=== PATIENT | female | born 1980 | race Caucasian/White ===

== ENCOUNTER 2017-06-28 16:56 | Emergency (ER) | payer OTHER ==
[2017-06-28 17:27] VITALS: BP 112/76; PULSE 81; RESP 20; TEMP 98.4; O2SAT 100
== END 2017-06-28 17:29 | disposition left against medical advice (07) ==
LOC: C.ER 16:56
DX: Z02.89 Encounter for other administrative examinations (principal); R10.9 Unspecified abdominal pain

== ENCOUNTER 2018-06-06 14:31 | Emergency (ER) | payer SELFPAY ==
[2018-06-06 14:53] VITALS: BP 127/81; PULSE 82; RESP 18; TEMP 98.1; O2SAT 100
--- NOTE | 2018-06-06 15:12 | C.PDOC ---
History Of Present Illness <Angelina Mendez - Last Filed: 06/06/18 15:35> <JoséDarlenelay Monk - Last Filed: 06/06/18 16:00> CC: Generalized body pain Patient is a 37 year old female with cirrhosis and questionable newly diagnosed RA (at [facility]), who presents to the ED with generalized body and joint pain and diffuse blotchy skin. Patient admits to symptoms of anxiety. As per EMR, there was no RA laboratory work up. Patient was told upon discharge to follow up with PMD/ teletypewriter operator, however, patient has not been able to follow up due to lack of insurance at the moment. Patient denies any associated symptoms. (Camron Kumar) <Angelina Mendez - Last Filed: 06/06/18 15:35> History Per: Patient History/Exam Limitations: no limitations Onset/Duration Of Symptoms: Days Current Symptoms Are (Timing): Still Present Severity: Moderate Pain Scale Rating Of: 6 Location: Diffuse body pain Quality: Achy <Camron Kumar - Last Filed: 06/06/18 16:00> Time Seen by Provider: 06/06/18 14:53 Chief Complaint (Nursing): Abnormal Skin Integrity Past Medical History - Medical History PMH: Arthritis (RA), Asthma Other Surgeries: Tubal Ligation Family History: States: Unknown Family Hx - Social History Hx Alcohol Use: No Hx Substance Use: No (marijuana) - Immunization History Hx Tetanus Toxoid Vaccination: No Hx Influenza Vaccination: No Hx Pneumococcal Vaccination: No <Camron Kumar - Last Filed: 06/06/18 16:00> Vital Signs: Last Vital Signs Temp 98.1 F 06/06/18 14:44 Pulse 82 06/06/18 14:44 Resp 18 06/06/18 14:44 BP 127/81 06/06/18 14:44 Pulse Ox 100 06/06/18 15:26 Review Of Systems Constitutional: Negative for: Fever, Chills, Sweats, Weakness Cardiovascular: Negative for: Chest Pain, Palpitations Respiratory: Negative for: Cough, Shortness of Breath Gastrointestinal: Negative for: Nausea, Vomiting, Abdominal Pain Musculoskeletal: Positive for: Other (Generalized ) <Camron Kumar - Last Filed: 06/06/18 16:00> Physical Exam - Physical Exam Appears: Well Skin: Normal Color, Warm Head: Atraumatic, Normacephalic Eye(s): bilateral: EOMI Neck: Normal ROM Cardiovascular: Rhythm Regular Respiratory: Normal Breath Sounds, Decreased Breath Sounds Gastrointestinal/Abdominal: Normal Exam, Bowel Sounds, Soft Extremity: Other (diffuse joint pain ) Extremity: Bilateral: Atraumatic Neurological/Psych: Oriented x3, Normal Speech <Camron Kumar - Last Filed: 06/06/18 16:00> ED Course And Treatment O2 Sat by Pulse Oximetry: 100 <Camron Kumar - Last Filed: 06/06/18 16:00> Progress - Continuity of Care Discussed pt. case with showroom consultant/specialty: Other ([facility] REVIEWED) <Angelina Mendez - Last Filed: 06/06/18 15:35> Supervising Attending Note - Supervising Attending Note Comment: RESIDENT DR KUMAR - Attestation: I have personally seen and examined this patient.: Yes I have fully participated in the care of the patient.: Yes I have reviewed all pertinent clinical information, including history, physical exam and plan: Yes <Angelina Mendez - Last Filed: 06/06/18 15:35> <Camron Kumar - Last Filed: 06/06/18 16:00> - Notes: Notes:: GEN PAIN X 2 DAYS. STATES DX W RA @ [facility] "MY RA IS ACTING UP" BUT NO DOCUMENTED LAB RESULTS FOR RA ON OLD CHART REVIEW. DENIES FOCAL JOINT PAIN. NO OTHER ASSOC SX. EXAM ABOVE (Angelina Mendez) Disposition Counseled Patient/Family Regarding: Diagnosis, Need For Followup, Rx Given - Disposition Disposition Time: 15:35 <Angelina Mendez - Last Filed: 06/06/18 15:35> <Camron Kumar - Last Filed: 06/06/18 16:00> - Disposition Referrals: [facility] [Outside] [facility] [Outside] Disposition: HOME/ ROUTINE Condition: GOOD Instructions: Muscle and Bone Pain (DC), Joint Pain Forms: [employer] (Frisian) - Clinical Impression Clinical Impression: Myalgia
== END 2018-06-06 15:41 | disposition home or self-care (01) ==
LOC: C.ER 14:31
DX: M79.1 Myalgia (principal); M06.9 Rheumatoid arthritis, unspecified

== ENCOUNTER 2018-08-05 17:33 | Emergency (ER) | payer MEDICAID, OTHER ==
[2018-08-05 17:55] VITALS: BP 166/94; PULSE 85; RESP 20; TEMP 98.9; O2SAT 100
--- NOTE | 2018-08-05 18:41 | C.PDOC ---
History Of Present Illness 37 year old female presents to the ED requesting heroin detox. Patient states she has been snorting around 10/15 bags/day. Patient stopped using yesterday and is requesting detox. At around 0230 today, she started with symptoms of vomiting, diarrhea, abdominal pain, joint pain, subjective fever and chills. Patient states she usually goes to [facility] in [place]. She reports history of Rheumatoid Arthritis and Asthma. Patient denies suicidal/homicidal ideation. Surgical history: tubal ligation social history: smoking, denies alcohol use family history: hypertension, diabetes, cancer Time Seen by Provider: 08/05/18 18:37 Chief Complaint (Nursing): Substance Abuse History Per: Patient History/Exam Limitations: no limitations Onset/Duration Of Symptoms: Hrs Current Symptoms Are (Timing): Still Present Modifying Factor(s): Narcotics (heroin ) Associated Symptoms: denies: Suicidal Thoughts, Suicidal Plan Additional History Per: Patient Past Medical History Reviewed: Historical Data, Nursing Documentation, Vital Signs Vital Signs: Last Vital Signs Temp 98.9 F 08/05/18 17:50 Pulse 85 08/05/18 17:50 Resp 20 08/05/18 17:50 BP 166/94 H 08/05/18 17:50 Pulse Ox 100 08/05/18 17:50 - Medical History PMH: Arthritis (RA), Asthma, Rheumatoid Arthritis Family History: States: Unknown Family Hx - Social History Hx Alcohol Use: Yes Hx Substance Use: Yes - Immunization History Hx Tetanus Toxoid Vaccination: No Hx Influenza Vaccination: No Hx Pneumococcal Vaccination: No Review Of Systems Psych: Positive for: Other (heroin detox ) Physical Exam - Physical Exam Appears: Non-toxic, No Acute Distress, Other (tired, tearful ) Skin: Warm, Dry Head: Normacephalic, Tenderness Eye(s): bilateral: PERRL, EOMI Oral Mucosa: Moist Throat: No Erythema, No Exudate Neck: Normal ROM, Trachea Midline Lymphatic: No Adenopathy Cardiovascular: Rhythm Regular, No Murmur Respiratory: Normal Breath Sounds, No Wheezing Gastrointestinal/Abdominal: Soft, Tenderness (diffuse, mild ), No Mass, No Guarding, No Rebound Back: Normal Inspection, No Decreased ROM Extremity: Normal ROM, No Deformity Neurological/Psych: Oriented x3, Normal Motor, Normal Sensation ED Course And Treatment O2 Sat by Pulse Oximetry: 100 (on RA ) Pulse Ox Interpretation: Normal Medical Decision Making Medical Decision Making: Impression: opioid use disorder Progress: there are no detox beds at this time. patient will be discharged with local resources and Rx for Zofran and Ibuprofen Disposition - Disposition Disposition: ELOPEMENT - ER ONLY Disposition Time: 19:00 Condition: GOOD Additional Instructions: CONTINUE TO TRY OTHER LOCATIONS FOR DETOX Prescriptions: Dicyclomine [Bentyl] 20 mg PO QID PRN #20 tab PRN Reason: abdominal pain Famotidine [Pepcid] 40 mg PO DAILY PRN #30 tab PRN Reason: reflux RX: Ibuprofen [Motrin Tab] 600 mg PO Q8 PRN #30 tab PRN Reason: Pain, Moderate (4-7) Ondansetron ODT [Zofran ODT] 1 odt PO Q6 PRN #20 odt PRN Reason: Nausea/Vomiting Instructions: Drug Abuse and Drug Addiction (DC) Forms: [employer] (Slovak) - Clinical Impression Clinical Impression: Opioid use disorder - Scribe Statement The provider has reviewed the documentation as recorded by the Scribe (Carmen Coy) Provider Attestation: All medical record entries made by the Scribe were at my direction and personally dictated by me. I have reviewed the chart and agree that the record accurately reflects my personal performance of the history, physical exam, medical decision making, and the department course for this patient. I have also personally directed, reviewed, and agree with the discharge instructions and disposition.
== END 2018-08-05 19:55 | disposition left against medical advice (07) ==
LOC: C.ER 17:33
DX: F11.10 Opioid abuse, uncomplicated (principal)

== ENCOUNTER 2018-09-04 00:45 | Emergency (ER) | payer OTHER ==
[2018-09-04 01:09] VITALS: RESP 20; O2SAT 97
[2018-09-04] MEDS ORDERED: Sodium Chloride 0.9% 1,000 ML IV ONE (01:17)
--- NOTE | 2018-09-04 01:17 | C.PDOC ---
History Of Present Illness Patient presentes with diffuse body aches, running nose , for the last 24-48 hours/. Also a slight non productive cough. Speaking in complete sentences. No f/c/n/v Time Seen by Provider: 09/04/18 01:17 Chief Complaint (Nursing): Flu-like Symptoms Past Medical History Reviewed: Historical Data, Nursing Documentation, Vital Signs Vital Signs: Last Vital Signs Temp 98.4 F 09/04/18 00:55 Pulse 92 H 09/04/18 00:55 Resp 20 09/04/18 00:55 BP 114/78 09/04/18 00:55 Pulse Ox 97 09/04/18 00:55 - Medical History PMH: Arthritis (RA), Asthma, Rheumatoid Arthritis Family History: States: No Known Family Hx - Social History Hx Alcohol Use: Yes Hx Substance Use: Yes - Immunization History Hx Tetanus Toxoid Vaccination: No Hx Influenza Vaccination: No Hx Pneumococcal Vaccination: No Review Of Systems Constitutional: Negative for: Fever, Chills ENT: Negative for: Throat Pain Cardiovascular: Negative for: Chest Pain Respiratory: Positive for: Cough Gastrointestinal: Negative for: Nausea, Vomiting Genitourinary: Negative for: Dysuria Musculoskeletal: Negative for: Back Pain Skin: Negative for: Rash Neurological: Negative for: Weakness Psych: Negative for: Anxiety Physical Exam - Physical Exam Appears: Non-toxic, No Acute Distress Skin: Warm, Dry Eye(s): bilateral: Normal Inspection Nose: Discharge (clear) Oral Mucosa: Moist Throat: No Erythema, No Exudate Neck: Supple Chest: Symmetrical Cardiovascular: Rhythm Regular Respiratory: No Rales, No Rhonchi, No Wheezing Extremity: Normal ROM Neurological/Psych: Oriented x3 Gait: Steady ED Course And Treatment - Laboratory Results Result Diagrams: 09/04/18 01:41 09/04/18 01:41 O2 Sat by Pulse Oximetry: 97 Pulse Ox Interpretation: Normal Reevaluation Time: 03:03 Reassessment Condition: Improved Medical Decision Making Medical Decision Making: Upon provider reevaluation patient is feeling better, is medically stable, and requires no further treatment in the ED at this time. Patient will be discharged home . Counseling was provided and all questions were answered regarding diagnosis and need for follow up with the referred clinic. There is agreement to discharge plan. Return if symptoms persist or worsen. Disposition Counseled Patient/Family Regarding: Studies Performed, Diagnosis, Need For Followup - Disposition Referrals: [facility] [Outside] Disposition: HOME/ ROUTINE Disposition Time: 01:17 Condition: FAIR Additional Instructions: Please return if symptoms recur Instructions: Viral Upper Respiratory Infection, Adult (DC) Forms: [employer] (Ukrainian) - Clinical Impression Clinical Impression: URI (upper respiratory infection)
[2018-09-04] MEDS ORDERED: Sodium Chloride 0.9% 1,000 ML ONE (01:42)
[2018-09-04 01:44] LABS: BASO # 0.1 K/uL (0.0-0.2); EOS % 0.6 % (0.0-4.0); HEMOGLOBIN 10.9 g/dL (11.0-16.0); LYMPH # 3.1 K/uL (1.0-4.3); LYMPH % 42.9 % (20.0-40.0); MEAN CELL VOLUME 78.4 fL (81.0-99.0); MEAN CORPUSCULAR HEMOGLOBIN 25.7 pg (27.0-31.0); MEAN CORPUSCULAR HGB CONC 32.8 g/dL (33.0-37.0); MONO # 0.7 K/uL (0.0-0.8); MONO % 9.5 % (0.0-10.0); NEUT # 3.3 K/uL (1.8-7.0); RBC 4.23 Mil/uL (3.80-5.20); RED CELL DISTRIBUTION WIDTH 17.8 % (11.5-14.5); WHITE BLOOD COUNT 7.2 K/uL (4.8-10.8)
[2018-09-04 01:56] LABS: BLOOD UREA NITROGEN 15 mg/dL (7-17); CALCIUM 8.8 mg/dl (8.6-10.4); GFR NON-AFRICAN AMERICAN > 60
[2018-09-04 01:59] LABS: HCG,QUALITATIVE URINE NEGATIVE (NEGATIVE)
[2018-09-04 02:01] LABS: SQUAMOUS EPITHIAL 5 /hpf (0-5); URINE BILIRUBIN NEGATIVE (NEGATIVE); URINE BLOOD NEGATIVE (NEGATIVE); URINE CLARITY Clear (Clear); URINE COLOR Yellow (YELLOW); URINE GLUCOSE (UA) NORMAL (Normal); URINE LEUKOCYTE ESTERASE NEG Leu/uL (Negative); URINE PROTEIN NEGATIVE (NEGATIVE); URINE UROBILINOGEN NORMAL mg/dL (0.2-1.0)
[2018-09-04 04:05] VITALS: BP 118/82; PULSE 88; TEMP 98.3
== END 2018-09-04 02:45 | disposition home or self-care (01) ==
LOC: C.ER 00:45
DX: J06.9 Acute upper respiratory infection, unspecified (principal)
CPT/HCPCS: 80048; 81001; 84703; 85025; 87804; 96374; 99284; J2405; J7030

== ENCOUNTER 2018-11-29 00:50 | Emergency (ER) | payer OTHER ==
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
[2018-11-29 03:06] VITALS: BP 125/80; PULSE 85; RESP 14; TEMP 99
[2018-11-29 03:24] VITALS: O2SAT 99
--- NOTE | 2018-11-29 10:38 | RAD ---
Date of service: 11/29/2018 PROCEDURE: Radiographs of the right elbow. HISTORY: injury COMPARISON: No prior. FINDINGS: BONES: No acute fracture or destructive bony lesion identified. JOINTS: No subluxation or dislocation. SOFT TISSUES: Retained metallic foreign body and the region of the medial portion biceps muscle. JOINT EFFUSION: None. OTHER FINDINGS: None. IMPRESSION: No acute bony findings. No destructive bony lesion identified. Retained radiodense foreign body right biceps muscle region.
== END 2018-11-29 03:06 | disposition home or self-care (01) ==
LOC: C.ER 00:50
DX: M25.521 Pain in right elbow (principal)